=== PATIENT | male | born 1935 | race Caucasian/White ===

== ENCOUNTER 2016-07-03 12:30 | Emergency (ER) | payer MEDICARE, OTHER ==
[~2016-07-03] VITALS: Ht 169.2 cm; Wt 72.7 kg
[~2016-07-03 12:30] MED LIST: ATOR20TA PO; CARB1TAB14 PO; CARB1TAB37 PO; CHOL200047 PO; CITA20TA11 PO; DOCU250C2 PO; DONE10TA42 PO; KLO1T PO; LEVO25TA5 PO; LEVO500T16 PO; METO25TA6 PO; MINE3.5O28 BOTH_EYES; MULT-666 PO; NIAC100045 PO; PANT40TA3 PO; POLY1DRO BOTH_EYES; PRAM0.252 PO; PRAM0.256 PO; SENN-133 PO; WARF2.5T82 PO; WARF2TAB7 PO
[2016-07-03 12:34] VITALS: BP 95/60; PULSE 73; RESP 16; O2SAT 98
--- NOTE | 2016-07-03 13:40 | DRSVH ---
PROCEDURE: CT BRAIN WITHOUT CONTRAST ([id number]) INDICATIONS: CONFUSION TECHNIQUE: Noncontrast 4.5 mm thick angled axial sections acquired from the foramen magnum to the vertex, with c oronal reformats. COMPARISON: None. FINDINGS: Image quality: Excellent. CSF spaces: Basal cisterns are patent. No extra-axial fluid collections. The ventricles are symmet lizabeth in size and shape. Brain: No intracranial bleeds or masses. There is cerebral volume loss for age, with resultant vent ricular and sulcal prominence. There are periventricular and deep white matter chronic small vessel ischemic changes. There is intracranial internal carotid artery atherosclerosis. Skull and face: Calvarium and visualized facial bones appear intact, without suspicious lesions. Sinuses: Visualized sinuses and mastoids are clear. IMPRESSION: No acute intracranial disease process. Dictated by: Sydni Torres MD, PhD on 07/03/2016 at 13:37 Approved by: Sydni Torres MD, PhD on 07/03/2016 at 13:38
--- NOTE | 2016-07-03 14:17 | ED.REPORT ---
HPI-General Illness Date of Service Jul 03, 2016 ED Provider: Nicci Teresa MD 80 y/o male with a hx of CHF, TIA and Atrial fibrillation with pacemaker presents to the ED upon his training and development assistant, Dr. Melendez's advice. As per the pt's , 4 days ago the pt's "caregiver found him completely slumped over with his head almost on the ground". The caregiver also informed the that the pt was very pale, confused and couldn't move for about 10 minutes after she found him outside the house. Since then, the pt has been experiencing fatigue. As per the pt, he remembers pulling weeds and talking to his caregiver. He denies abdominal pain, nausea,vomiting, dizziness, chest pain and SOB. Nursing Notes Stated Complaint: SLOW TO RESPOND/CHECK STROKE Chief Complaint: General Complaint Nursing Notes Reviewed: Yes Allergies: Coded Allergies: TAPE (Verified Allergy, Mild, 07/12/15) Scheduled Atorvastatin (Lipitor) 20 Mg Tablet 40 MG PO HS Carbidopa/Levodopa 25-100 mg (Carbidopa/Levodopa 25-100 mg) 1 Each Tablet 1 TABLET PO QID Carbidopa/Levodopa ER 50-200 mg (Carbidopa/Levodopa ER 50-200 mg) 1 Each Tablet 1 TABLET PO HS Cholecalciferol (Vitamin D3) (Vitamin D3) 2,000 Unit Capsule 2,000 UNIT PO DAILY Citalopram (Citalopram) 20 Mg Tablet 20 MG PO DAILY Docusate Sodium (Docusate Sodium) 250 Mg Capsule 100 MG PO BID Donepezil (Donepezil) 10 Mg Tablet 10 MG PO HS Levofloxacin (Levaquin) 500 Mg Tablet 500 MG PO DAILYAC Levothyroxine (Levothyroxine) 25 Mcg Tablet 25 MCG PO DAILY Metoprolol Tartrate (Metoprolol Tartrate) 25 Mg Tablet 12.5 MG PO BID Mineral Oil/Petrolatum,White (Artificial Tears Eye Oint) 3.5 Gm Tube 1 APPLIC BOTH_EYES HS Multivitamin (Once Daily) 1 Each Tablet 1 EACH PO DAILY Niacin ER (Niacin ER) 1,000 Mg Tablet 1,000 MG PO HS Pantoprazole DR (Pantoprazole DR) 40 Mg Tablet.dr 40 MG PO DAILY Pramipexole Dihydrochloride (Pramipexole Dihydrochloride) 0.25 Mg Tablet 0.125 MG PO QAM Pramipexole Dihydrochloride (Mirapex) 0.25 Mg Tablet 0.25 MG PO QPM Sennosides (Senna) 8.6 Mg Tablet 8.6 MG PO HS Warfarin Sodium (Warfarin Sodium) 2.5 Mg Tablet 4.5 MG PO DAILY PER PROTIME CLINIC Warfarin Sodium (Warfarin Sodium) 2 Mg Tablet 4.5 MG PO DAILY Scheduled PRN Clonazepam (Clonazepam) 1 Mg Tablet 1 MG PO HS PRN PRN For Anxiety Polyvinyl Alcohol/Povidone/Pf (Refresh Classic Eye Drops) 1 Each Droperette 1 EACH BOTH_EYES PRN For Eye Irritation General Time Seen by MD: 14:15 Chief Complaint Multip medical complaints Hx Obtained From: Spouse Arrived By: Walk-in Sudden in Onset?: Yes Onset Occurred: 4 days ago Symptom Duration: 1 - 15 minutes Severity: Current: No pain currently Severity: Maximum: No pain Recent Healthcare: Recent doctor visit Similar Sx Previous: No Past Medical History Past Medical History Notes: Produce Assistant: Dr. Melendez Past Medical History Parkinson's sleep apnea restless leg syndrome valvular insufficiency Atrial fibrillation with pacemaker Anxiety Reports: Congestive heart failure, Transient ischemic attack Reports: Dementia, Depression Past Surgical History Left ankle fusion Knee scope Reports: Appendectomy, Tonsillectomy Reports: Pacemaker insertion Smoking History Never Smoker Social History Lives at home with , retired. Stays active by riding bicycle. Alcohol Use: "Social" Drug Use: Denies drug use Occupation Retired Ambulatory Status Walker Review of Systems +Pallor Full Review of Systems Constitutional: Reports: Fatigue Respiratory: Denies: Shortness of breath Cardiovascular: Denies: Chest pain GI: Denies: Abdominal pain, Nausea, Vomiting Neurologic: Reports: Confusion, Problem walking, Denies: Dizziness Complete sys rev & neg: except as marked. Physical Exam Vital Signs Vital Signs Date Time Temp Pulse Resp B/P Pulse Ox O2 Delivery O2 Flow Rate FiO2 07/03/16 17:41 70 14 118/57 99 Room Air 07/03/16 12:34 36.8 73 16 95/60 98 Room Air Initial VS: Reviewed Head / Eyes: Atraumatic, Normocephalic, PERRL ENT: Mucous membranes moist, Conjunctiva normal, No scleral icterus Neck: Supple, Non-tender, Full range of motion Respiratory: Breath sounds normal, Clear to auscultation, No respiratory distress Cardiovascular: Regular rate & rhythm, Heart sounds normal, Intact distal pulses Abdomen / GI: Soft, Non-tender, No guarding, No rebound, No distention Extremities: Vascular intact, Neuro intact, No swelling, No tenderness Skin: Warm, Dry, No cyanosis Neurologic: Alert, Oriented, Nonfocal Psychiatric: Mood/affect normal, Behavior normal, Normal thought content General/Constitutional: Awake, Alert, No acute distress, Well appearing, Cooperative, Not toxic appearing Interpretation & Diagnostics Lab Results Interpretation Result Diagram: 07/03/16 1456 07/03/16 1456 Test 07/03/16 14:56 07/03/16 16:40 07/03/16 17:51 White Blood Count 4.9th/mm3 (3.8-10.1) Red Blood Count 4.59mil/mm3 (4.40-5.80) Hemoglobin 14.3g/dL (13.8-17.2) Hematocrit 42.4% (41.0-50.0) Mean Corpuscular Volume 92.4fL (81-100) Mean Corpuscular Hemoglobin 31.2pg (27.0-35.0) Mean Corpuscular Hemoglobin Concent 33.7% (32.0-37.0) Red Cell Distribution Width 12.6% (12.3-15.4) Platelet Count 156bil/L (150-400) Neutrophils (%) (Auto) 69.4% (40-74) Lymphocytes (%) (Auto) 21.6% (14-46) Monocytes (%) (Auto) 7.2% (4-12) Eosinophils (%) (Auto) 1.0% (0-5) Basophils (%) (Auto) 0.6% (0-3) Prothrombin Time 24.6sec (8.1-12.5) Prothromb Time International Ratio 2.26ratio Sodium Level 133mEq/L (134-144) Potassium Level 4.6mEq/L (3.5-5.2) Chloride Level 98mEq/L (97-108) Carbon Dioxide Level 22mmol/L (18-29) Blood Urea Nitrogen 14mg/dL (8-27) Creatinine 0.63mg/dL (0.76-1.27) Estimat Glomerular Filtration Rate 131mL/min (>59) Glucose Level 89mg/dL (60-99) Calcium Level 9.5mg/dL (8.5-10.1) Total Bilirubin 0.4mg/dL (0.0-1.2) Aspartate Amino Transf (AST/SGOT) 33U/L (0-50) Alanine Aminotransferase (ALT/SGPT) 19U/L (0-44) Alkaline Phosphatase 89U/L (25-160) Total Protein 6.4g/dL (6.4-8.4) Albumin 4.0g/dL (3.4-5.0) Troponin T 0.013ug/L (0.0-0.011) Hold Mac Top Tube Received (Received) ECG Interpretation ECG Interpretation: Ventricullarly paced rhtyhm. Rate 71. Time: 14:50 Interpreted by: ED physician X-Ray Chest Interpretation Chest Xray Interpretation: IMPRESSION: No acute process. Dictated by: Dinora Ribeiro M.D. on 07/03/2016 at 14:27 Approved by: Dinora Ribeiro M.D. on 07/03/2016 at 14:28 View: Portable, 1 view Interpretation / Wet Read by: Interpret - Radiologist CT Head Interpretation IMPRESSION: No acute intracranial disease process. Dictated by: Sydni Torres MD, PhD on 07/03/2016 at 13:37 Approved by: Sydni Torres MD, PhD on 07/03/2016 at 13:38 Study: Head CT no contrast Interpretation / Wet Read by: Interpret - Radiologist Re-Eval/Medical Decision Med Decision/Clinical Course The patient had an episode earlier this week that seems most consistent with a syncopal or near-syncopal episode. He was confused and pale. Interrogation of his pacemaker reveals that it was working appropriately. Dr. Peters came and looked at the readout. He said it still possible that he had a vagal episode that caused vasodilatation that his pacemaker was working. There was some concern for stroke but again the symptoms are consistent more with syncope or near syncope, the patient does not have any localizing neurologic symptoms, he was confused and weak but this lasted only 10 minutes. The patient's evaluation shows an elevated troponin so we will have a repeat troponin. If his troponin stays the same healthy able to go home because a few need to be admitted to the hospital. The patient signed out to Dr. Taylor. Source of Hx: Old records, Family Re-Evaluation/Progress Note: Consultation : Referral / Consult Name: Humberto Peters MD Consulted With: Cardiology Call Returned at: 15:47 Die Try Out Worker Stamping: Agrees with eval, Agrees with plan Counseled Regarding: Diagnosis, Lab results, Need for follow-up, When/why to return to ED Discharge & Departure Shift Change Sign-Out Patient Care Transferred: Yes Discussed Complaint(s): Yes Laboratory Evaluation: Ordered, not yet done Response to Therapy: Discussed Repeat troponin Primary Impression: Near syncope Discharge Condition All VS Reviewed: Yes Condition: Stable Referrals: Anitha Snyder MD (PCP) Erwin Melendez MD Care Transferred to: Dr. Taylor Care Transferred at: 18:01 Scribe Attestation Portions of this note were transcribed by Yelitza Hurtado and Nadege Bryan. I, , personally performed the history, physical exam and medical decision-making;I reviewed and confirmed the accuracy of the information in the transcribed note. Signed by Yelitza Bryan, Scribe. 07/03/16 1800. copies to: Anitha Snyder MD; Erwin Melendez MD, Jena M MD Jul 03, 2016 14:17 Yelitza Hurtado Jul 03, 2016 14:32 Nadege Bryan Jul 03, 2016 17:36
--- NOTE | 2016-07-03 14:30 | DRSVH ---
PROCEDURE: X-RAY CHEST ONE VIEW, PORTABLE ([id number]) INDICATIONS: CVA/TIA TECHNIQUE: One view of the chest was acquired. COMPARISON: [facility], CR, XR CHEST 1VW (PORTABLE), 03/18/2015, 8:00. [facility], CR, CHEST 1VW (PORTABLE), 11/06/2011, 8:59. [facility], CR, CHEST 1VW (PORTABLE), 09/13/2011, 17:43. [facility], CR, XR CHEST 2VW, 09/24/2015, 16:01. FINDINGS: Surgical changes and devices: Left-sided pacer. Median sternotomy. Lungs and pleura: No pleural effusions or pneumothorax. Lungs are clear. Mediastinum: Mediastinal contours appear normal. Heart size is enlarged. Bones and chest wall: No suspicious bony lesions. Overlying soft tissues appear unremarkable. IMPRESSION: No acute process. Dictated by: Dinora Ribeiro M.D. on 07/03/2016 at 14:27 Approved by: Dinora Ribeiro M.D. on 07/03/2016 at 14:28
[2016-07-03 14:59] LABS: BASOPHILS % (AUTO) 0.6 % (0-3); MONOCYTES % (AUTO) 7.2 % (4-12); Mean Corpuscular Hemoglobin 31.2 pg (27.0-35.0); Mean Corpuscular Volume 92.4 fL (81-100); NEUTROPHILS % (AUTO) 69.4 % (40-74); Platelet Count 156 bil/L (150-400)
[2016-07-03 15:16] LABS: INR 2.26 ratio
[2016-07-03 17:41] VITALS: BP 118/57; PULSE 70; RESP 14; O2SAT 99
[2016-07-03 18:15] LABS: APPEARANCE,URINE CLEAR (CLEAR,HAZY); COLOR,URINE YELLOW (YELLOW); OCCULT BLOOD,URINE NEGATIVE (NEGATIVE); PH,URINE 7.5 (5.0-8.0); UROBILINOGEN,URINE NORMAL (NORMAL)
[2016-07-03 19:47] VITALS: BP 137/79; PULSE 70; RESP 14; O2SAT 100
[2016-07-03 20:57] VITALS: BP 129/75; PULSE 75; RESP 14; O2SAT 100
[2016-07-03 20:58] VITALS: BP 133/78; PULSE 74
== END 2016-07-03 21:05 | disposition home or self-care (01) ==
LOC: SED 12:30
DX: R55 Syncope and collapse (principal); I48.91 Unspecified atrial fibrillation; I50.9 Heart failure, unspecified; G20 Parkinson's disease; G47.30 Sleep apnea, unspecified; Z86.73 Personal history of transient ischemic attack (TIA), and cerebral infarction without residual deficits; Z95.0 Presence of cardiac pacemaker; Z86.69 Personal history of other diseases of the nervous system and sense organs; Z90.89 Acquired absence of other organs; Z79.01 Long term (current) use of anticoagulants

== ENCOUNTER 2016-09-02 14:44 | Observation (INO) | payer MEDICARE, OTHER ==
[~2016-09-02] VITALS: Ht 167.6 cm; Wt 74.7 kg
[2016-09-02] VITALS (8 sets, daily range): BP systolic 105–122; BP diastolic 58–76; PULSE 65–79; RESP 18–27; O2SAT 95–98
[2016-09-02 15:12] LABS: BASOPHILS % (AUTO) 0.5 % (0-3); EOSINOPHILS % (AUTO) 1.6 % (0-5); MONOCYTES % (AUTO) 9.7 % (4-12); Mean Corpuscular Hemoglobin 31.6 pg (27.0-35.0); Mean Corpuscular Volume 94.5 fL (81-100); NEUTROPHILS % (AUTO) 68.4 % (40-74); Platelet Count 161 bil/L (150-400)
--- NOTE | 2016-09-02 15:18 | DRSVH ---
PROCEDURE: X-RAY CHEST ONE VIEW, PORTABLE ([id number]) INDICATIONS: 81 year-old male with syncope and shortness of breath. TECHNIQUE: One view of the chest was acquired. COMPARISON: [facility], CR, XR CHEST 1VW (PORTABLE), 07/03/2016, 14:19. [facility], CR, XR CHEST 2VW, 09/24/2015, 16:01. [facility], CR, XR CHEST 2VW, 08/19/2015, 8: 57. FINDINGS: Surgical changes and devices: Left chest wall dual chamber pacemaker is again noted. Patient is statu s post median sternotomy and cardiac valve replacement. Lungs and pleura: No pleural effusions or pneumothorax. Lungs are clear. Mediastinum: Mediastinal contours appear normal. Cardiomegaly is unchanged. Bones and chest wall: No suspicious bony lesions. Overlying soft tissues appear unremarkable. IMPRESSION: Cardiomegaly, without acute cardiopulmonary disease. Dictated by: Abdiel Diallo M.D. on 09/02/2016 at 15:15 Approved by: Abdiel Diallo M.D. on 09/02/2016 at 15:16
--- NOTE | 2016-09-02 15:30 | ED.REPORT ---
HPI-Dizziness / Weakness Date of Service Sep 02, 2016 ED Provider: Murphy Alvarez MD Patient presents to ER today with three-day history of progressive weakness and fatigue. Patient states that he feels strong muscles are not weak. Generally patient is very able and active, states that his status today is a significant change from his baseline. But he feels more tired than normal despite adequate rest. He denies fever chills nausea vomiting. He has a significant cardiac history with pacer placement in 2009. Last saw hat model 2 months ago PCP is Dr. Mae Snyder Nursing Notes Stated Complaint: WEAK Chief Complaint: General Complaint Nursing Notes Reviewed: Yes Allergies: Coded Allergies: TAPE (Verified Allergy, Mild, 09/02/16) Scheduled Atorvastatin (Lipitor) 20 Mg Tablet 40 MG PO HS Carbidopa/Levodopa 25-100 mg (Carbidopa/Levodopa 25-100 mg) 1 Each Tablet 1 TABLET PO BIDWM 10AM, 1630PM Carbidopa/Levodopa 25-100 mg (Carbidopa/Levodopa 25-100 mg) 1 Each Tablet 1.5 TABLET PO BID 06AM, 1400PM Carbidopa/Levodopa ER 50-200 mg (Carbidopa/Levodopa ER 50-200 mg) 1 Each Tablet 1 TABLET PO HS Cholecalciferol (Vitamin D3) (Vitamin D3) 2,000 Unit Capsule 2,000 UNIT PO DAILY Citalopram (Citalopram) 20 Mg Tablet 20 MG PO HS Clonazepam (Clonazepam) 1 Mg Tablet 1 MG PO HS Digoxin (Digoxin) 250 Mcg Tablet 125 MCG PO HS Docusate Sodium (Docusate Sodium) 250 Mg Capsule 100 MG PO BID Donepezil (Donepezil) 10 Mg Tablet 10 MG PO HS Levothyroxine (Levothyroxine) 25 Mcg Tablet 25 MCG PO QAM Metoprolol Tartrate (Metoprolol Tartrate) 25 Mg Tablet 12.5 MG PO BID Mineral Oil/Petrolatum,White (Refresh P.m. Ointment) 3.5 Gm Oint...g. 1 APPLIC BOTH_EYES HS Multivitamin (Once Daily) 1 Each Tablet 1 EACH PO DAILY Pramipexole Dihydrochloride (Mirapex) 0.5 Mg Tablet 0.5 MG PO QAM Pramipexole Dihydrochloride (Mirapex) 0.5 Mg Tablet 1.5 MG PO HS Sennosides (Senna) 8.6 Mg Tablet 17.2 MG PO HS Trazodone (Trazodone) 50 Mg Tablet 25 MG PO HS Warfarin Sodium (Warfarin Sodium) 2.5 Mg Tablet 2.5 MG PO QPM take along with 2mg tab for a total dose of 4.5mg daily Warfarin Sodium (Warfarin Sodium) 2 Mg Tablet 2 MG PO QPM take along with 2.5mg tab for a total dose of 4.5mg daily General Time Seen by MD: 14:54 Chief Complaint Generalized weakness, Feeling unsteady Hx Obtained From: Patient, Spouse Arrived By: Walk-in Onset Occurred: 3 days ago Symptom Duration: Constant Severity: Current: No pain currently Risk Factors CVA Risk Stratification Risk factors reviewed Past Medical History Past Medical History 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 Stays active by riding bicycle. Alcohol Use: "Social" Drug Use: Denies drug use Occupation Retired Ambulatory Status Walker Review of Systems Constitutional: Reports: Fatigue, Lethargy, Recent wt loss, Weakness - generalized, Denies: Chills, Fever Respiratory: Reports: Dyspnea on exertion, Shortness of breath Cardiovascular: Denies: Chest pain GI: Denies: Abdominal pain, Constipation, Diarrhea Endocrine: Reports: Weight loss Skin: Denies Diaphoresis Neurologic: Denies: Confusion, Focal weakness, Headache, Lightheaded, Numbness Complete sys rev & neg: except as marked. Physical Exam Initial Vital Signs Vital Signs (First) Date Time Temp Pulse Resp B/P Pulse Ox O2 Delivery O2 Flow Rate FiO2 09/02/16 14:48 36.7 79 25 118/61 96 Room Air Initial VS: Reviewed ENT: Mucous membranes moist, Conjunctiva normal Neck: Supple, Non-tender Abdomen / GI: Soft, Non-tender, No guarding, No rebound, No distention Lymphatic: No lymphadenopathy Extremities: Vascular intact Skin: Warm, Dry, No cyanosis Psychiatric: Mood/affect normal, Behavior normal, Normal thought content General/Constitutional: Awake, Alert, No acute distress Alertness: Positive: Lethargic, Negative: Confused, Disoriented Appearance / Presentation: Negative: Cachectic, Cyanotic, In pain Interpretation & Diagnostics Lab Results Interpretation Result Diagram: 09/02/16 1500 09/02/16 1500 Test 09/02/16 15:00 White Blood Count 5.7th/mm3 (3.8-10.1) Red Blood Count 4.21mil/mm3 (4.40-5.80) Hemoglobin 13.3g/dL (13.8-17.2) Hematocrit 39.8% (41.0-50.0) Mean Corpuscular Volume 94.5fL (81-100) Mean Corpuscular Hemoglobin 31.6pg (27.0-35.0) Mean Corpuscular Hemoglobin Concent 33.4% (32.0-37.0) Red Cell Distribution Width 12.8% (12.3-15.4) Platelet Count 161bil/L (150-400) Neutrophils (%) (Auto) 68.4% (40-74) Lymphocytes (%) (Auto) 19.6% (14-46) Monocytes (%) (Auto) 9.7% (4-12) Eosinophils (%) (Auto) 1.6% (0-5) Basophils (%) (Auto) 0.5% (0-3) Prothrombin Time 19.4sec (8.1-12.5) Prothromb Time International Ratio 1.79ratio Sodium Level 143mEq/L (134-144) Potassium Level 3.7mEq/L (3.5-5.2) Chloride Level 106mEq/L (97-108) Carbon Dioxide Level 24mmol/L (18-29) Blood Urea Nitrogen 25mg/dL (8-27) Creatinine 0.68mg/dL (0.76-1.27) Estimat Glomerular Filtration Rate 120mL/min (>59) Glucose Level 90mg/dL (60-99) Calcium Level 9.4mg/dL (8.5-10.1) Magnesium Level 2.0mg/dL (1.6-2.6) Total Bilirubin 0.5mg/dL (0.0-1.2) Aspartate Amino Transf (AST/SGOT) 56U/L (0-50) Alanine Aminotransferase (ALT/SGPT) 10U/L (0-44) Alkaline Phosphatase 96U/L (25-160) Troponin T 0.096ug/L (0.0-0.011) Total Protein 6.3g/dL (6.4-8.4) Albumin 4.1g/dL (3.4-5.0) Triglycerides Level 64mg/dL (0-149) Cholesterol Level 154mg/dL (100-199) LDL Cholesterol, Calculated 90.200mg/dL (0-99) VLDL Cholesterol 12.800mg/dL HDL Cholesterol 51mg/dL (>39) Cholesterol/HDL Ratio 3.02 (0.0-4.4) Hold Mac Top Tube Received (Received) Re-Eval/Medical Decision Med Decision/Clinical Course This is a 81-year-old male who has not previously had coronary disease in spite of having valvular disease. He presents today with 24 hours of nonspecific symptoms of fatigue without chest pain shortness of breath nausea or diaphoresis. The patient's ECG shows a paced rhythm. Surprisingly his troponin is positive. On discussion with cardiology, he had a cardiac catheterization last year in [place] with what was described as minimal coronary disease. He has somewhat subtherapeutic on warfarin for atrial fibrillation. My exam and sounds that he has a mechanical valve for likely this is also an indication for anticoagulation. He do not find any acute suggestion of infection. After discussion with cardiology, the patient was given an injection of Lovenox to bridge until INR is therapeutic. He will be admitted to the hospitalist service with cardiology consult in the morning. Sierra Alvarez MD Consultation #1: Referral / Consult Name: Ale Wolfe MD Consulted With: Hospitalist Call Returned at: 16:15 Clay Artisan: Will see patient, Accepts admit Note: Discussed pt with Dr. Wolfe Consultation #2: Referral / Consult Name: Cooper Stockton MD Consulted With: Cardiology Call Returned at: 17:25 Clay Artisan: Agrees with eval, Agrees with plan Note: Discussed case with Dr. Stockton and he will consult in the morning. Advised Lovanox until he is therapeutic on his INR. Counseled Regarding: Diagnosis, Lab results, Need for admission Patient Discharge & Departure Impression: Primary Impression: Non-ST elevation myocardial infarction (NSTEMI) Disposition: ADMITTED TO HOSPITAL Discharge Condition All VS Reviewed: Yes Condition: Stable Referrals: Anitha Snyder MD (PCP) Attending Statement Seen and examined with Dr Ferraro on 09/02. Agree with above, see my note in MDM Anitha Snyder MD, Adam J DO Sep 02, 2016 15:30 Ewa Warner Sep 02, 2016 17:32 Murphy Alvarez MD Sep 02, 2016 20:09
[2016-09-02 15:48] LABS: INR 1.79 ratio
[2016-09-02 15:51] LABS: TROPONIN T 0.096 ug/L (0.0-0.011)
[2016-09-02] MEDS ORDERED: 0.9% Sodium Chloride 1,000 ML IV SCH (16:22)
[2016-09-02] MEDS ORDERED: Senna-Docusate 8.6-50 mg Tablet PO PRN (16:25)
[2016-09-02] MEDS ORDERED: Heparin 5,000 Unit/mL Inj IVPUSH ONE (16:25)
[2016-09-02] MEDS ORDERED: Ondansetron 2 mg/mL 2 mL Inj IVPUSH PRN ×3 (16:25→17:20)
[2016-09-02] MEDS ORDERED: Heparin 5,000 Unit/mL Inj IVPUSH PRN (16:25)
[2016-09-02] MEDS ORDERED: Heparin 25K Unit/500mL 0.45 NS 25,000 UNIT in IV Premix 1 EACH IV SCH (16:25)
[2016-09-02] MEDS ORDERED: Atropine 1 mg/10 mL (Code) Syringe IVPUSH PRN (16:25)
[2016-09-02] MEDS ORDERED: Alum-Mag Hydrox-Simeth 30 mL Suspension PO PRN ×3 (16:25→17:20)
[2016-09-02] MEDS ORDERED: Polyethylene Glycol (PEG) 17 Gm Powder PO PRN ×2 (16:25→17:05)
[2016-09-02] MEDS ORDERED: Sodium Chloride LOK Flush 10 mL Syringe IVFLUSH SCH (16:30)
[2016-09-02] MEDS ORDERED: DIGO125T73 PO ×2 (16:53→19:56)
[2016-09-02] MEDS ORDERED: KTC2C15 TP (16:53)
[2016-09-02] MEDS ORDERED: TRAZ-115 PO (16:53)
[2016-09-02] MEDS ORDERED: hydrALAZINE 20 mg/mL Inj IVPUSH PRN (17:05)
[2016-09-02] MEDS ORDERED: CARB1TAB14 PO (17:34)
[2016-09-02] MEDS ORDERED: DIGO250T72 PO ×2 (17:37→19:57)
[2016-09-02] MEDS ORDERED: PETR3.5O BOTH_EYES (17:40)
[2016-09-02] MEDS ORDERED: PRAM0.5T3 PO ×2 (17:40)
[2016-09-02 17:59] LABS: APPEARANCE,URINE CLEAR (CLEAR,HAZY); COLOR,URINE YELLOW (YELLOW); OCCULT BLOOD,URINE NEGATIVE (NEGATIVE); UROBILINOGEN,URINE NORMAL (NORMAL)
--- NOTE | 2016-09-02 18:10 | PCM.HPMED ---
Subjective Date of Service Sep 02, 2016 Primary Provider: Admitting Physician: Ruben Nam MD Primary Care Physician: Anitha Snyder MD Attending Physician: Ruben Nam MD Chief Complaint: Confusion, weakness History of Present Illness: Lior Hurtado is a 81 year old man with past medical history significant for open heart surgery with repair of the tricuspid valve and a patent foramen ovale, atrial fibrillation on chronic warfarin therapy, and Parkinson disease who presents today to the [facility] ED due to two days of confusion and generalized weakness. The patient is a poor historian and is accompanied by his who gives much of the history. The patient's has noticed for the last few days that he has been weak with a somewhat abrupt change two days ago. She has also noticed that he leans more to the right in a chair and has had worsening of his shuffling gait. She noticed more pronounced confusion and slurring than usual. She denies any facial droop. The patient denies any chest pain, shortness of breath, diaphoresis, unilateral weakness, nausea, vomiting or abdominal or back pain. He does see a neurologist for his Parkinson and there have been no changes to his medications. His last visit was two months ago. He was seen yesterday at an Urgent Care where concern was expressed about a possible CVA and he was advised to come to the hospital for further evaluation. In the ED his vitals were stable. EKG was V-Paced and not revealing. CXR was negative. He has a mildly elevated troponin. Review of Systems: A comprehensive review of systems was conducted with the patient and found to be negative except as above in the History of Present Illness. Allergies Coded Allergies: TAPE (Verified Allergy, Mild, 09/02/16) Home Medications Lior Hurtado. [id number] 1935 09/01/2016 05:40 PM 03/12 Start Date Medication Directions 01/13/2016 atorvastatin 40 mg tablet take 1 tablet by oral route every day carbidopa 25 mg-levodopa 100 mg tablet take 1.5 tablets at 6am, 1 tablet at 10am, 1.5 tablets at 2pm and 1 tablet at 4:30pm every day carbidopa ER 50 mg-levodopa 200 mg tablet,extended release Take 1 tablet by mouth daily 01/23/2016 citalopram 20 mg tablet take 1 tablet by oral route every day for mood 08/21/2016 clonazepam 1 mg tablet take 1 tablet (1MG) by ORAL route every night at bedtime. 07/24/2016 digoxin 125 mcg tablet take 1/2 tablet by oral route every day 07/25/2015 docusate sodium 100 mg capsule take 1 capsule by oral route 2 times every day at bedtime as needed 01/08/2015 donepezil 10 mg tablet take 1 tablet (10MG) by oral route every day at bedtime for memory 11/25/2015 ketoconazole 2 % topical cream apply by topical route every day to the affected area(s) 04/09/2016 levothyroxine 25 mcg tablet take 1 tablet (25MCG) by oral route every day before breakfast on an empty stomach for thyroid. 07/18/2009 Multiple Vitamins Tab take 1 tablet by ORAL route every day with food pramipexole 0.5 mg tablet take 1 tablet in AM by oral route and 3 tablets in PM Refresh Liquigel 1 % eye liquid gel drops Every day Refresh P.M. 57.3 %-42.5 % eye ointment Every day at bedtime 10/14/2010 senna 8.6 mg Tab take 2 tablet by oral route every bedtime 08/21/2016 TRAZODONE 50MG TABLET* = TAKE 1/2 TABLET BY MOUTH NIGHTLY AT BEDTIME NEEDED FOR NAUSEA Vitamin D3 2,000 unit tablet Take 1 tablet by mouth daily 07/31/2016 WARFARIN TAB 2.5MG TABLET TAKE ONE TABLET BY MOUTH DAILY OR DIRECTED 06/17/2016 warfarin 2 mg tablet take 1 tablet by oral route every day or as directed by coumadin clinic [facility] Valvular heart disease Atrial fibrillation on chronic warfarin therapy History of hemorrhoids Parkinson's disease Obstructive sleep apnea on CPAP Hypothyroidism History of constipation Restless leg syndrome Gastroesophageal reflux disease Hyperlipidemia History of depression and anxiety Hypertension TIA 2012 History of dyslipidemia. Surgical History Open heart surgery with tricuspid valve repair and patent foramen ovale repair Ankle surgery Appendectomy Tonsillectomy Pacemaker Family History Father: Stroke, heart disease. Mother, stroke, myocardial infarction Brother: Melanoma. Social History Hx Alcohol Use: No Hx Substance Use: No Hx Tobacco Use: No Smoking Status: Never Smoker Exam Vital Signs Vital Sign - Last Date Time Temp Pulse Resp B/P Pulse Ox O2 Delivery O2 Flow Rate FiO2 09/02/16 17:34 65 18 122/58 95 Room Air 09/02/16 14:48 36.7 Exam General: No acute distress, well-developed, well-nourished, appropriately interactive HEENT: Normocephalic, atraumatic. External ears without defect. Pupils equal, round, and reactive to light and accommodation. Anicteric sclerae, moist conjunctivae, and no lid lag. Oropharynx free of erythema and cobble stoning with moist mucosa. 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 Neck: Supple with full range of motion. No jugular venous distension. No bruits. No lymphadenopathy or thyromegaly. Cardiovascular: Regular rate and rhythm with soft diastolic murmur Pulmonary: Clear to auscultation bilaterally with no crackles, wheezes, or rhonchi. Normal respiratory effort with no use of accessory muscles. Abdomen: Bowel tones present. Soft, nontender, nondistended. No hepatosplenomegaly or masses appreciated. Extremities: No clubbing, cyanosis, edema, or lymphadenopathy appreciated. Skin: Normal temperature, turgor, and texture; no rash, ulcers, or subcutaneous nodules appreciated. Neurological: Cranial nerves grossly intact. Normal muscle strength, tone, and bulk. No known gait impairment. Psychiatric: Normal mood and affect. Alert and oriented to person, place, and time. Lab and Diagnostics Labs Item Value Date Time Prothromb Time International Ratio 1.79 ratio 09/02/16 1500 Item Value Date Time Troponin T 0.096 ug/L *H 09/02/16 1500 Result Diagram: 09/02/16 1500 09/02/16 1500 X-Rays, CTs and MRIs X-RAY CHEST ONE VIEW, PORTABLE IMPRESSION: Cardiomegaly, without acute cardiopulmonary disease. Dictated by: Abdiel Diallo M.D. on 09/02/2016 at 15:15 12-lead ECG V-paced, normal axis, unable to view ST changes Assessment & Plan Lior Hurtado is a 81 year old man with past medical history significant for open heart surgery with repair of the tricuspid valve and a patent foramen ovale, atrial fibrillation on chronic warfarin therapy, and Parkinson disease who presents today to the [facility] ED due to two days of confusion and generalized weakness. Possible CVA in patient with A. fib with subtherapeutic INR -DDx progression of Parkinson disease -CT of head without contrast -CT angio of head and neck tomorrow -Patient has a pacemaker and is unable to have an MRI -ECHO with bubble study -Patient not on ASA, will start -Continue home statin -Telemetry -Fall precaution -ST, OT, PT Status post open heart surgery with valvular replacement and patent foramen ovale repair: -Possible contribution to CVA Atrial fibrillation, present on admission and rate controlled. -Subtherapeutic INR. Continue warfarin if head CT shows no bleed. -Continue home medications: Metoprolol tartrate -Patient on telemetry Parkinson's disease, present on admission: -Continue levodopa-carbidopa, donepezil, and pramipexole. Hyperlipidemia, present on admission: -Continue Atorvastatin. Depression anxiety, present on admission: -Continue Citalopram. Hypothyroidism, present on admission: -Continue Levothyroxine. Gastroesophageal reflux disease, present on admission: -Continue Pantoprazole. CODE STATUS: DNR/DNI Patient is admitted under observation due to severity of symptoms, possibility for deterioration, and complexity of treatment. VTE Prophylaxis: Theraputic Anticoag with Warfarin Resuscitation Status: DNR/DNI:Do Not Resuscitate/Intubate Time spent 45 minutes Attending Statement Patient was seen and examined with house staff. Agree with all attached documentation. Yamel Jordan DO Sep 02, 2016 17:37 Ruben Nam MD Sep 03, 2016 15:48
--- NOTE | 2016-09-02 19:52 | NUR ---
Admit No reports of chest pain/pressure/discomfort. Tele V paced 60s-70s. Bilateral LE pitting edema, L>R, patient has tedhose on right LE. No reports of SOB/dizziness, SPO2 mid 90s on RA, denies cough, patient has KOTA, bringing in CPAP. No reports of n/v/d/c or abdominal pain. Patient has not voided since arrival to unit, per ED report voids in urinal without complication. Reports normal BM this AM. Alert and oriented x3, LOPEZ, reports full sensation. RN notes equal strength in all extremities, patient has even facial symmetry, tongue is midline. Face has non expressive, "parkinsons mask" type appearance.
--- NOTE | 2016-09-02 21:50 | DRSVH ---
PROCEDURE: CT BRAIN WITHOUT CONTRAST ([id number]) INDICATIONS: ?CVA, confusion TECHNIQUE: Noncontrast 4.5 mm thick angled axial sections acquired from the foramen magnum to the vertex, with c oronal reformats. COMPARISON: [facility], CT, CT BRAIN WO CON, 07/03/2016, 13:28. FINDINGS: Image quality: Excellent. CSF spaces: Basal cisterns are patent. No extra-axial fluid collections. The ventricles are symmet lizabeth in size and shape. Brain: No intracranial bleeds or masses. There is moderate cerebral volume loss for age, with resul tant ventricular and sulcal prominence. There are moderate periventricular and deep white matter chr onic small vessel ischemic changes. There is intracranial internal carotid artery atherosclerosis. Skull and face: Calvarium and visualized facial bones appear intact, without suspicious lesions. Sinuses: Visualized sinuses and mastoids are clear. IMPRESSION: 1. No acute intracranial abnormalities. If acute stroke is suspected, MRI is suggested for further ev aluation. 2. Cerebral volume loss and chronic microvascular ischemic changes. Dictated by: Sid Mcdonald M.D. on 09/02/2016 at 21:45 Approved by: Sid Mcdonald M.D. on 09/02/2016 at 21:47
[2016-09-03 03:11] VITALS: BP 102/68; PULSE 70; RESP 19; O2SAT 98
[2016-09-03 03:13] VITALS: PULSE 71
[2016-09-03 08:00] VITALS: PULSE 70
--- NOTE | 2016-09-03 11:04 | NUR ---
Case Management: MAGANA and Medicare Part D pamphlet delivered to pt. and spouse. Signed original placed in chart. Copy left at bedside. Dinora Jc RN
--- NOTE | 2016-09-03 11:16 | NUR ---
Social Work: Initial Assessment D: Per EMR review, pt is a 81 year old male admitted for N STEMI. Pt is Medicare with [employer] of State; pt has no LTC insurance or VA benefits. PCP is Anitha Snyder MD. NOK is Rebekah Hurtado, , . Advanced directives requested from pt's for pt's chart. Readmit score is 4/8. GLAUCOMA SPECIALIST met with pt and at bedside. Sw role explained and contact info provided. Pt and spouse live in [place] in a single story home with ramp access. Pt has Parkinsons and uses a 4WW at baseline. Pt does not drive but states that he is I with all of his ADLs. assists with driving, chores, cooking and groceries. Pt has a history with [facility] but is not currently open. Pt was placed at [facility] in [place] from [id number] after his diagnosis of Parkinsons. Pt was able to return home and both he and state that he has been doing very well. PT evaluation is pending. A: Pt who lives at home with his spouse. P: Evolving; Anticipate pt to discharge home; GLAUCOMA SPECIALIST to follow up with discharge planning once needs are more known. GLAUCOMA SPECIALIST to continue to follow. MICHAEL Castillo
[2016-09-03 11:56] VITALS: BP 117/69; PULSE 71; RESP 18; O2SAT 98
--- NOTE | 2016-09-03 13:41 | DRSVH ---
[facility] [address] [place] [address] Echocardiogram Report Name: VALENTIN POSADAS CStudy Date: Height: 6 6 in Hospital Exam Location: [facility] Weight: 1 63 lb Gender: Male BSA: 1.8 m2 : 1935 Age: 81 yrs Reason For Study: N STEMI, R/O Cardio-embolic source of CVA HR: 70 Ordering Physician: FILIBERTOIST [facility] Performed By: Shahnaz Solitario Referring Physician: Dr Anitha Snyder Interpretation Summary Yellow Team. Left ventricular wall thickness is mildly increased. The ejection fraction is estimated to be 45-50%. Septal motion is consistent with post-operative state. Inferoapical hypoknesis, distal septal hypokinesis. There is a bioprosthetic aortic valve. The prosthetic aortic valve is well-seated. There is mild mitral regurgitation. There is mild tricuspid regurgitation. The right ventricular systolic pressure is estimated at 25 mmHg assuming a right atrial pressure of 3 mm Hg. Compared to the prior exam, left ventricular function is slightly decreased. Procedure: A two-dimensional transthoracic echocardiogram with color flow and Doppler was performed. The study quality was technically adequate. Comparison is made with the echocardiogram of 08/19/2015. The patient was in normal sinus rhythm during the exam. Left Ventricle: The left ventricle is normal in size. Left ventricular wall thickness is mildly increased. A false chord is noted (normal variant). No obvious source of cardio-embolic source. The ejection fraction is estimated to be 45-50%. Compared to the prior exam, left ventricular function is slightly decreased. Septal motion is consistent with post-operative state. Inferoapical hypoknesis, distal septal hypokinesis. Diastolic function could not be accurately assessed due to unobtainable data. Right Ventricle: The right ventricle is normal size. Grossly normal systolic function however TAPSE measures at 13mm. Atria: The left atrium is severely dilated. The right atrium is severely dilated. The interatrial septum is intact with no evidence for an atrial septal defect. Injection of contrast documented no interatrial shunt. Bubble study with valsalva performed, injection of contrast documented no interatrial shunt. Mitral Valve: The mitral valve leaflets appear borderline thickened, but open well. There is mild mitral annular calcification. There is mild mitral regurgitation. Aortic Valve: There is a bioprosthetic aortic valve. The prosthetic aortic valve is well-seated. There is no aortic valve stenosis. There is trace aortic regurgitation. Tricuspid Valve: The tricuspid valve is normal in structure and function. There is mild tricuspid regurgitation. The right ventricular systolic pressure is estimated at 25 mmHg assuming a right atrial pressure of 3 mm Hg. Pulmonic Valve: The pulmonic valve is not well visualized. There is trace pulmonic regurgitation. Great Vessels: The aortic root is normal size. The ascending aorta is mildly enlarged. The pulmonary artery is normal size. The IVC is of normal diameter and collapses greater than 50% with a sniff. This suggests a low right atrial pressure of 3 mm Hg. Pericardium/ Pleura There is no pericardial effusion. There is no pleural effusion. MMode/2D Measurements & Calculations LVIDd: 4.3 cm LA dimension LVOT diam: 2.3 cm LVIDs: 2.7 cm Ao root diam: 3.3 cm LVAd ap4: 25.0 cm FS: 36.8 % LA A2 area asc Aorta Diam: 3.8 cm LVAs ap4: 19.0 cm EPSS: 0.32 cm LVLs ap4: 6.9 cm IVSd: 1.4 cm LVPWd: 1.3 cm LA A4 area LA length (vol) LA vol: 130.7 ml LA vol index IVC diam: 1.6 cm LVAd ap2 LV medrano. diameter/BSA LV sys. diameter/BSA : 27.0 cm EF(MOD-bp) (cm/m^2): 2.3 (cm/m^2): 1.5 LVLd ap2 : 43.7 % EDV(MOD-sp2) EDV(sp2-el) LVAs ap2 : 18.7 cm LVLs ap2 ESV(MOD-sp2) ESV(sp2-el) EF(MOD-sp2) Doppler Measurements & Calculations Ao V2 max MV E max delta Med Peak E' Delta TR max delta : 143.3 cm/sec : 80.9 cm/sec : 236.5 cm/sec Ao max P.2 mmHg E/E' med: 9.0 TR max PG Ao mean P.3 mmHg Pulm A Revs Dur : 22.4 mmHg LVOT Max Delta PA V2 max : 116.4 cm/sec MV A dur : 56.1 cm/sec : 0.14 sec PA mean PG NIK(I,D): 3.3 cm : 0.61 mmHg sev ratio: 0.79 PA Accel Time AI P1/2t: 875.2 msec : 0.09 sec AI dec slope : 146.4 cm/s2c MV dec time: 0.19 sec Ao V2 mean LV V1 max PG PA V2 mean : 95.7 cm/sec : 36.7 cm/sec Ao V2 VTI: 29.2 cm LV V1 VTI PA pr(Accel) NIK(V,D): 3.3 cm2 : 23.1 cm : 39.1 mmHg NIK indexed to BSA Pulm A Revs Dur - MV (cm^2/m^2): 1.8 A Dur: 0.00 msec Electronically signed by: Erwin Melendez on Reading Physician:09/03/2016 01:40 PM
[2016-09-03 14:15] LABS: INR 1.62 ratio
--- NOTE | 2016-09-03 14:21 | NUR ---
Evaluation completed. Please go to "Notes" then click on "Assessments and Notes" (bottom left corner of screen). Then select appropriate discipline tab on top of screen.
--- NOTE | 2016-09-03 15:45 | CONS ---
[address] [address] CARDIOLOGY INPATIENT CONSULTATION REPORT PATIENT: VALENTIN POSADAS : 1935 MR#: [id number] ADMIT: 09/02/2016 JOB ID: [id number] DATE OF SERVICE: 09/03/2016 CARDIOLOGY CONSULTATION: HISTORY OF PRESENT ILLNESS: This is a very pleasant 80-year-old gentleman with Parkinson disease, dementia, status post bioprosthetic aortic valve replacement for aortic regurgitation, tricuspid annuloplasty, repaired PFO, atrial appendage ligation, all of this was done on June 19, 2015. He had preserved cardiac function per echo from August 19, 2015 with LVEF 55%-60%. He has chronic atrial fibrillation, tachycardia-bradycardia syndrome and status post dual-chamber pacemaker implantation, and he also has hypothyroidism. Cardiology was asked to consult the patient for slightly elevated troponin. This patient was admitted to [facility] on September 02, 2016 with increased generalized weakness. When I spoke to the patient, the patient stated that his was concerned that last several days he was feeling more tired and weak than usual, and when he was sitting in a chair, he was always leaning to the right and that was very worrisome for his and she brought him to the hospital. Otherwise the patient tells me that generally he has been doing as usual, physically active, exercising on a stationary bike regularly every day and he tolerates physical activity very well without any chest discomfort or chest pressure or dyspnea on exertion. Denies having any palpitations, dizziness or lightheadedness. He does not have symptoms of nocturnal pulmonary congestion. On admission his blood pressure was 118/61. He was afebrile and he had normal saturation 96% at room air. On EKG it was showing that he had a ventricular paced rhythm with underlying atrial fibrillation. The workup so far did not show any infection including UA. He has normal kidney function and electrolytes. He had slightly elevated troponins with maximum on admission 0.096 which trended down and currently today is 0.039. REVIEW OF SYSTEMS: Twelve point of review of systems are negative except the ones mentioned in the HPI. HOME MEDICATIONS: 1. Atorvastatin 40 mg daily. 2. Digoxin 125 mcg, half tablet every day. 3. He is anticoagulated on warfarin. 4. He has also hypothyroidism and he is on levothyroxine 25 mcg tablet daily. 5. He is also on medications for his Parkinson disease. He is on carbidopa. PAST MEDICAL HISTORY: 1. Chronic atrial fibrillation. 2. Valvular heart disease. 3. Parkinson disease. 4. Obstructive sleep apnea on CPAP. 5. Hypothyroidism. 6. Restless legs syndrome. 7. Gastroesophageal reflux disease. 8. Hyperlipidemia. 9. History of depression and anxiety. 10. Hypertension. 11. TIA in 2011. 12. History of dyslipidemia. SURGICAL HISTORY: 1. Status post bioprosthetic aortic valve replacement for aortic regurgitation. 2. Tricuspid annuloplasty. 3. PFO repair. 4. Atrial appendage ligation which was done on June 19, 2015. 5. Ankle surgery. 6. Appendectomy. 7. Tonsillectomy. 8. Pacemaker. PHYSICAL EXAMINATION: Vital signs from today: Temperature 36.4 Celsius, pulse 71 beats per minute. Respiratory rate 18 per minute. Blood pressure 117/69 mmHg. Pulse oximetry 98% on room air. General: No acute distress. Well-developed, well-nourished, cooperative, comfortably lying in the bed.HEENT: Mucous membranes moist, eyes anicteric. Neck: Supple, no thyromegaly. Cardiovascular: Regular rate and rhythm, no murmur appreciated. Pulmonary: Normal breathing sounds bilaterally, no crackles, no wheezing. Abdomen: Nontender with palpation. Extremities: No lower extremity edema. Skin: No rash. Neurological: Alert and oriented x3, some memory issues. No gross abnormalities. LABORATORIES: His troponin on admission on September 02, 2016 0.096. It trended down today to 0.039. Triglycerides 64, cholesterol 154, LDL 90, HDL 51. Sodium 143, potassium 3.7, chloride 106, carbon dioxide 24, BUN 25, creatinine 0.68, glucose 90, calcium 9.4, magnesium 2. Total bilirubin 0.5. AST 56, ALT 10, alkaline phosphatase 96. Hemoglobin A1c 5.1. IMAGING: Chest x-ray from September 02, 2016 showed cardiomegaly without acute cardiopulmonary disease. CT brain without contrast from September 02, 2016 shows no acute intracranial abnormality. It also showed cerebral volume loss and chronic microvascular ischemic changes. Echo from September 03, 2016 showed the left ventricular wall thickness is mildly increased. His ejection fraction is estimated to be 45%-50%, which is actually decreased comparing to his echo from August 19, 2015 when his ejection fraction was 55%-60%. There is a bioprosthetic aortic valve. The prosthetic aortic valve is well seated. There is mild mitral regurgitation. There is mild tricuspid regurgitation. The right ventricular systolic pressure is estimated at 25 mmHg and atrial pressure is 3 mm Hg. Like I said, that compared to the prior examination, left ventricular fraction function is slightly decreased. Septal motion is consistent with postoperative state. Inferior apical hypokinesis, distal septal hypokinesis is noted. EKG from September 02, 2016 on admission showed ventricular paced rhythm with heart rate 70, underlying atrial fibrillation. Telemetry showed ventricular paced rhythm in 70s with underlying atrial fibrillation. His heart rate today was going up to 120 beats per minute with occasional PVCs. ASSESSMENT AND PLAN: This is a very pleasant 72-year-old gentleman who was admitted to [facility] on September 02, 2016. He has Parkinson disease, status post bioprosthetic aortic valve replacement for aortic regurgitation, tricuspid annuloplasty, PFO repair, atrial appendage ligation, all of this done on June 19, 2015, chronic atrial fibrillation anticoagulated on warfarin, tachycardia-bradycardia syndrome with dual-chamber pacemaker in place, hypothyroidism. He was admitted with generalized weakness that he has been experiencing it recently and found to have mildly elevated troponins and echo today showed decreased left ventricular systolic function with ejection fraction 45%-50% which is slightly decreased comparing that what he had one year ago when he had 55%- 60%. # Cardiomyopathy - The patient is clinically asymptomatic from cardiac standpoint, does not have angina. He is euvolemic on examination, does not have symptoms of congestive heart failure. On admission he had slightly elevated troponins which trended down, he had no ischemic changes on EKG. I discussed the case with erp specialist Dr. Melendez who recommended that the patients newly diagnosed cardiomyopathy and slightly elevated and trending down trops could be secondary to myocarditis. It should be noted that the patient had a diagnostic cardiac catheterization done on May 13, 2015 and no significant epicardial coronary artery disease was identified at the time. He had tubular stenosis in LAD in mid segment of about 30%.. Also it was noted that the area might also had mild myocardial bridging. Would recommend to proceed with lexiscan stress test to reassess progression of LAD CAD. At this point, would recommend to continue current medications without change. I would not recommend increasing the dose of his metoprolol taking in mind the patient's advanced Parkinson's disease with generally autonomic dysfunction. The case was discussed with Director Of Student Services Dr. Melendez who agreed with Assessment and Plan. DIONTED
--- NOTE | 2016-09-03 15:51 | PCM.PNMED ---
Subjective Date of Service Sep 03, 2016 Subjective Lior Hurtado is a 81 year old man with past medical history significant for open heart surgery with repair of the tricuspid valve and a patent foramen ovale, atrial fibrillation on chronic warfarin therapy, and Parkinson disease who presents today to the [facility] ED due to two days of confusion and generalized weakness. Overnight: No acute events. Today: The patient states that he is feeling fine and he is only somewhat more weak than usual. He denies any chest pain, shortness of breath or worsening confusion. The remainder of ROS is negative except as noted above. Exam Vital Signs Vital Sign - Last Date Time Temp Pulse Resp B/P Pulse Ox O2 Delivery O2 Flow Rate FiO2 09/03/16 11:56 36.4 71 18 117/69 98 Room Air Intake and Output 09/02/16 09/02/16 09/03/16 Cumulative From/Thru 15:00 23:00 07:00 09/02/16 14:48 - 09/03/16 05:20 Intake Total 0 ml 0 ml Output Total 400 ml 400 ml Balance -400 ml -400 ml Intake Oral 0 ml 0 ml Output Urine Total 400 ml 400 ml # Bowel Movements 0 0 Exam General: No acute distress, well-developed, well-nourished, appropriately interactive HEENT: Normocephalic, atraumatic. External ears without defect. Pupils equal, round, and reactive to light and accommodation. Anicteric sclerae, moist conjunctivae, and no lid lag. Oropharynx free of erythema and cobble stoning with moist mucosa. 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 Neck: Supple with full range of motion. No jugular venous distension. No bruits. No lymphadenopathy or thyromegaly. Cardiovascular: Regular rate and rhythm with soft diastolic murmur Pulmonary: Clear to auscultation bilaterally with no crackles, wheezes, or rhonchi. Normal respiratory effort with no use of accessory muscles. Abdomen: Bowel tones present. Soft, nontender, nondistended. No hepatosplenomegaly or masses appreciated. Extremities: No clubbing, cyanosis, edema, or lymphadenopathy appreciated. Skin: Normal temperature, turgor, and texture; no rash, ulcers, or subcutaneous nodules appreciated. Neurological: Cranial nerves grossly intact. Normal muscle strength, tone, and bulk. No known gait impairment. Psychiatric: Normal mood and affect. Alert and oriented to person, place, and time. IVs and Medications Medications Reviewed: Medications were reviewed in detail Lab and Diagnostics Result Diagram: 09/02/16 1500 09/02/16 1500 X-Rays, CTs and MRIs X-RAY CHEST ONE VIEW, PORTABLE IMPRESSION: Cardiomegaly, without acute cardiopulmonary disease. Dictated by: Abdiel Diallo M.D. on 09/02/2016 at 15:15 12-lead ECG V-paced, normal axis, unable to view ST changes Assessment & Plan Lior Hurtado is a 81 year old man with past medical history significant for open heart surgery with repair of the tricuspid valve and a patent foramen ovale, atrial fibrillation on chronic warfarin therapy, and Parkinson disease who presents today to the [facility] ED due to two days of confusion and generalized weakness. Possible CVA in patient with A. fib with subtherapeutic INR -DDx progression of Parkinson disease -CT of head without contrast negative. -CT angio of head and neck read pending -Patient has a pacemaker and is unable to have an MRI -ECHO with bubble study showed slightly reduced EF as compared to one year prior -Patient not on ASA, will start -Continue home statin -Telemetry -Fall precaution -ST, PT cleared patient. OT pending. Status post open heart surgery with valvular replacement and patent foramen ovale repair: -Possible contribution to CVA Elevated troponin, likely due to strain -Cardiology consulted, appreciate input. -Due to patient's reduction in EF, cardiology recommends stress test. Atrial fibrillation, present on admission -Subtherapeutic INR. Continue warfarin. -Continue home medications: Metoprolol tartrate -Patient on telemetry Parkinson's disease, present on admission: -Continue levodopa-carbidopa, donepezil, and pramipexole. Hyperlipidemia, present on admission: -Continue Atorvastatin. Depression anxiety, present on admission: -Continue Citalopram. Hypothyroidism, present on admission: -Continue Levothyroxine. Gastroesophageal reflux disease, present on admission: -Continue Pantoprazole. CODE STATUS: DNR/DNI Disposition: Anticipate patient can be discharged tomorrow, depending on the results of his stress test. VTE Prophylaxis: Theraputic Anticoag with Warfarin Resuscitation Status: DNR/DNI:Do Not Resuscitate/Intubate Attending Statement Patient was seen and examined with housestaff. Agree with all attached documentation. Yamel Jordan DO Sep 03, 2016 14:48 Ruben Nam MD Sep 04, 2016 12:44
--- NOTE | 2016-09-03 16:34 | DRSVH ---
PROCEDURE: CT ANGIO HEAD AND NECK (P) INDICATIONS: R/O Carotid Disease TECHNIQUE: Pre-contrast 4.5 mm thick sections acquired from the foramen magnum to the vertex. After the adminis tration of intravenous contrast, 1 mm thick sections acquired from the aortic arch through the [place]. Post-contrast 4.5 mm thick sections then re-acquired from the foramen magnum to the vert ex. 3-dimensional vevaiwm-iyegzuejh-xlcxbwnxhv (MIP) and/or volume rendering reformats were acquired of the central intracranial vasculature and neck separately. For radiation dose reduction, the foll owing was used: automated exposure control, adjustment of mA and/or kV according to patient size. COMPARISON: [facility], CT, CT BRAIN WO CON, 07/03/2016, 13:28. [facility], CT, BRAIN W/O CONTRAST, 05/04/2011, 8:34. [facility], CT, BRAIN W/O CONTRAST, 09/13/2011, 11:02. [facility], CT, CT BRAIN WO CON, 09/02/2016, 20:39. FINDINGS: Image quality: Excellent. BRAIN: CSF spaces: Ventricles are normal in size and shape. Basal cisterns are patent. No extra-axial flu id collections. Brain: No midline shift. No intracranial bleeds or masses. [place]-white matter interface appears int act. Moderate periventricular and subcortical white matter chronic microvascular ischemic changes are noted. Small punctate calcification noted in the right frontal lobe which is stable compared to prio r examinations and likely represents sequela of prior granulomatous disease. Skull and face: Calvarium and facial bones appear intact, without suspicious lesions. Orbits appear normal. Sinuses: Sinuses and mastoids are clear. HEAD CT ANGIOGRAPHY: Anterior circulation: Intracranial internal carotid arteries are normal in size and flow. Atheroscle rotic calcifications noted in the supraclinoid segments of the internal carotid arteries bilaterally which are causing visible stenosis. The flow within the paired anterior cerebral arteries is normal a nd symmetric. The flow within the middle cerebral arteries is normal and symmetric. The anterior co mmunicating artery is seen. No aneurysms are seen. Posterior circulation: Visualized portions of the vertebral arteries demonstrate normal caliber, and join to form a normal appearing basilar artery. Flow within the posterior cerebral arteries is norm al and symmetric. 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 No aneurysms are seen. NECK CT ANGIOGRAPHY: Carotid system: The great vessels demonstrate a conventional anatomy as they arise from the aortic a rch. The origins of the common carotid arteries appear patent. Atherosclerotic calcifications noted in the origin of the left subclavian artery which causes mild, approximately 20% stenosis of the vess el. The common carotid arteries demonstrate normal caliber and courses. Atherosclerotic calcification s in the origins of the internal carotid arteries bilaterally which causes less than 50% stenosis. Posterior circulation: The origins of the vertebral arteries both appear widely patent. The more mosley perior extracranial portions of both vertebral arteries also demonstrate normal courses and calibers. They join to form a normal appearing basilar artery. Soft tissues: Visualized neck soft tissues demonstrate no suspicious abnormalities. Postsurgical luiza nges compatible prior CABG procedure note in the upper chest . Dual-lead left chest wall cardiac pace r is noted. Bones: No suspicious bony lesions. Spine degenerative disc disease and facet arthropathy. Visualized cervical spine appears normally aligned. Median sternotomy wires noted in the upper chest. IMPRESSION: 1. No vascular occlusion or hemodynamically significant vascular stenosis. 2. Less than 50% stenosis of the origins of the internal carotid arteries bilaterally. 3. Atherosclerotic calcifications in the supraclinoid segments of the intracranial internal carotid a rteries bilaterally which do not cause measurable stenosis. 4. The vertebral arteries appear fully patent. 5. No acute intracranial disease process. Dictated by: Sydni Torres MD, PhD on 09/03/2016 at 16:21 Approved by: Sydni Torres MD, PhD on 09/03/2016 at 16:32
[2016-09-03 16:49] VITALS: BP 104/72; PULSE 71; RESP 19; O2SAT 97
--- NOTE | 2016-09-03 19:16 | NUR ---
Uneventful shift No reports of chest pain/pressure/discomfort. Tele V paced 60s-70s. Bilateral LE non pitting edema. No reports of SOB/dizziness, SPO2 mid 90s on RA, denies cough, patient has KOTA, home CPAP at bedside. No reports of n/v/d/c or abdominal pain. Episodes of incontinence, uses urinal at times. Alert and oriented x3, LOPEZ, reports full sensation. RN does not note arm drop, patient has even facial symmetry, face has non expressive, "parkinsons mask" type appearance.
[2016-09-03] MEDS ORDERED: Carbidopa-Levodopa 50-200 mg ER12 Tablet PO SCH (21:00)
[2016-09-03 23:25] VITALS: BP 102/63; PULSE 69; RESP 16; O2SAT 96
[2016-09-04 03:24] VITALS: BP 115/71; PULSE 72; RESP 16; O2SAT 98
--- NOTE | 2016-09-04 06:18 | NUR ---
Incontinence Pt incontinent of urine 90% of the time. Full soaked brief, pt placed in blue briefs instead of the white pull ups he was using during the day which have to be put on in pairs d/t large amount of volume. Pt able to assist with urinal somewhat.
[2016-09-04 07:28] LABS: BASOPHILS % (AUTO) 0.2 % (0-3); EOSINOPHILS % (AUTO) 2.1 % (0-5); MONOCYTES % (AUTO) 6.7 % (4-12); Mean Corpuscular Hemoglobin 31.6 pg (27.0-35.0); Mean Corpuscular Volume 93.3 fL (81-100); NEUTROPHILS % (AUTO) 66.3 % (40-74); Platelet Count 158 bil/L (150-400)
[2016-09-04 07:41] VITALS: BP 104/64; PULSE 70; RESP 19; O2SAT 95
[2016-09-04 11:17] VITALS: BP 107/66; PULSE 70; RESP 18; O2SAT 96
--- NOTE | 2016-09-04 14:28 | NUR ---
Not available when attempted evaluation this afternoon. Will try again as staffing allows. Samir Mckee, OTR/L
--- NOTE | 2016-09-04 14:34 | NUR ---
Social Work: Discharge D: Pt discussed in am rounds. Pt is medically stable for discharge home with his spouse. Per MD, pt to require no home needs. LURE MAKER met with pt at bedside to confirm discharge plan and assess for unmet needs. Pt states that he has no concerns about discharge home and that his will be providing transport. A: Pt who lives at home with his and uses a FWW. P: Pt to discharge home via POV and no further sw needs. MICHAEL Castillo
--- NOTE | 2016-09-04 14:47 | NUR ---
Cardiac stress test Patient denied having pain or discomfort this morning. Patient had a small meal at 0630 this morning according to flotation tank operator RN report. Nuclear [facility] staff was made aware. Patient to be NPO for 4h prior to [facility] cardiac stress test and remained NPO after 0630 this morning. Patient was taken by Nuclear Med staff for procedure/test after 1200 today in stable condition.
--- NOTE | 2016-09-04 15:43 | DRSVH ---
PROCEDURE: 1 DAY PHARMACOLOGICAL STRESS TEST Rest and pharmacological stress myocardial perfusion SPECT with gated imaging and ejection fraction RADIOPHARMACEUTICAL: 9.1 mCi Tc-99m tetrafosmin IV at rest and 26.0 mCi Tc-99m tetrafosmin IV at pea k effect of pharmacological stress. A jgx-lck-jjmsevrv was performed. INDICATIONS: Chest pain. TECHNIQUE: Radiopharmaceutical was injected at peak stress test, and also at rest. SPECT images wer e obtained. SPECT myocardial perfusion images were displayed in short axis, horizontal long axis, an d vertical long axis views. Gated images were reviewed using [employer] software. COMPARISON: None. CARDIAC STRESS: A pharmacologic stress test was performed under the supervision of an attending staff, using an infus ion of LexiScan (0.4 mg/5 mL). Hemodynamic data: There is hypotensive response to pharmacologic stress. Symptoms: The patient denied anginal chest pain. Aminophylline: 100 mg/4 mL administered intravenously. EKG: Rest EKG paced. Stress EKG non-diagnostic paced. FINDINGS: Raw data: There is good myocardial uptake of radiotracer. No significant motion artifacts. Left ventricle function: Gated images demonstrate normal left ventricular wall thickening. Paradoxi minh septal motion is noted likely related to postoperative change. Hypokinesis is noted in the infero apical wall. No subjective evidence of transient ischemic dilation. Left ventricle resting end diast olic volume is 94 mL. Left ventricle stress ejection fraction is 57%; normal range is above 45%. Myocardial perfusion: There is a small, fixed perfusion defect in the lateral wall. There is a small , mildly intense reversible perfusion defect in the lateral wall adjacent to the fixed perfusion defe ct. There is otherwise normal distribution of radiotracer in the left ventricular myocardium during t he stress and rest phases of the study. IMPRESSION: 1. Abnormal study demonstrating a small lateral wall infarct with small area of mild brandon-infarct isc hemia. 2. Left ventricular inferoapical wall hypokinesis. Septal wall paradoxical motion is noted likely rel ated to postoperative change. 3. Normal stress LVEF of 57%. 4. Hypotensive response to pharmacologic stress. PQRS ATTESTATIONS: Measure 322 - Is this imaging test primarily performed on a low-risk surgery patient for preoperative evaluation within 30 days preceding their low-risk non-cardiac surgery? Low-risk surgery is defined as cardiac or myocardial infarction less than 1%, including (but not limited to) endoscopic pr ocedures, superficial procedures, cataract surgery, and excisional breast surgery: Answer: No Measure 323 - Is this imaging test performed primarily for the monitoring of an asymptomatic patient who had percutaneous coronary intervention on the visit date or within 2 years of the visit date? An swer: No Measure 324 - Is this imaging test performed primarily for the initial detection and risk assessment on an asymptomatic, low coronary heart disease patient? Low CHD risk definition = clinicians should consider the maximum number of available patient factors used to estimate risk based on [place] (A TP III criteria), typically age, gender, diabetes, smoking status, and use of blood pressure medicati on, and integrate age appropriate estimates for missing elements, such as LDL or standard blood press ure. Answer: No Dictated by: Sydni Torres MD, PhD on 09/04/2016 at 15:20 Approved by: Sydni Torres MD, PhD on 09/04/2016 at 15:40
--- NOTE | 2016-09-04 16:11 | PCM.DIMED ---
Yamel Jordan DO 09/04/16 1611: Discharge Instructions Date of Service Sep 04, 2016 Dates of Hospitalization Sep 02, 2016 at 17:01 Discharge Diagnosis Discharge Diagnosis Stroke ruled out. Status post open heart surgery with valvular replacement and patent foramen ovale repair Elevated troponin, likely due to strain Atrial fibrillation, present on admission Parkinson's disease, present on admission Hyperlipidemia, present on admission Depression anxiety, present on admission Hypothyroidism, present on admission Gastroesophageal reflux disease, present on admission Medication Instructions Additional med instructions No changes were made to your medications. Diet Discharge Diet: No restrictions Activity Discharge Activity: No restrictions Call your provider Call your provider for: Weakness (unilateral) Patient Instructions Patient Instructions You were evaluated for a stroke. We did not find any evidence of a stroke. You were evaluated for heart problem. We found a mild reduction in your ejection fraction, which is your heart's ability to squeeze and pump out blood. This should not cause problems. We did not find any major problems with your heart. You did not have a heart attack. Please follow up with your regular doctor in about 1 week. Follow-up Provider: Anitha Snyder MD Follow-up with PCP in: 1 week Ruben Nam MD 09/07/16 0742: Discharge Instructions Attending's Statement Patient seen and examined with house staff. Agree with all attached documentation. [email or web address] DO Sep 04, 2016 16:11 Ruben Nam MD Sep 07, 2016 07:42
[2016-09-04 16:12] VITALS: BP 105/59; PULSE 60; RESP 20; O2SAT 97
--- NOTE | 2016-09-04 17:24 | PCM.DC.MED ---
Discharge Summary Date of Service Sep 04, 2016 Dates of Hospitalization Date of Hospital Admission Sep 02, 2016 at 17:01 Date of Discharge: Sep 04, 2016 Providers: Admitting Physician: Ruben Nam MD Primary Care Physician: Anitha Snyder MD Attending Physician: Ruben Nam MD Diagnosis at Time of Discharge Diagnosis at Time of Discharge Stroke ruled out. Status post open heart surgery with valvular replacement and patent foramen ovale repair Elevated troponin, likely due to strain Atrial fibrillation, present on admission Parkinson's disease, present on admission Hyperlipidemia, present on admission Depression anxiety, present on admission Hypothyroidism, present on admission Gastroesophageal reflux disease, present on admission Consultations Cardiology Procedures XRay, CTs & MRIs X-RAY CHEST ONE VIEW, PORTABLE IMPRESSION: Cardiomegaly, without acute cardiopulmonary disease. Dictated by: Abdeil Diallo M.D. on 09/02/2016 at 15:15 ECG 12 Lead V-paced, normal axis, unable to view ST changes Cardiac Echo Impression Interpretation Summary Yellow Team. Left ventricular wall thickness is mildly increased. The ejection fraction is estimated to be 45-50%. Septal motion is consistent with post-operative state. Inferoapical hypoknesis, distal septal hypokinesis. There is a bioprosthetic aortic valve. The prosthetic aortic valve is well-seated. There is mild mitral regurgitation. There is mild tricuspid regurgitation. The right ventricular systolic pressure is estimated at 25 mmHg assuming a right atrial pressure of 3 mm Hg. Compared to the prior exam, left ventricular function is slightly decreased. Brief History Lior Hurtado is a 81 year old man with past medical history significant for open heart surgery with repair of the tricuspid valve and a patent foramen ovale, atrial fibrillation on chronic warfarin therapy, and Parkinson disease who presents today to the [facility] ED due to two days of confusion and generalized weakness. The patient is a poor historian and is accompanied by his who gives much of the history. The patient's has noticed for the last few days that he has been weak with a somewhat abrupt change two days ago. She has also noticed that he leans more to the right in a chair and has had worsening of his shuffling gait. She noticed more pronounced confusion and slurring than usual. She denies any facial droop. The patient denies any chest pain, shortness of breath, diaphoresis, unilateral weakness, nausea, vomiting or abdominal or back pain. He does see a neurologist for his Parkinson and there have been no changes to his medications. His last visit was two months ago. He was seen yesterday at an Urgent Care where concern was expressed about a possible CVA and he was advised to come to the hospital for further evaluation. In the ED his vitals were stable. EKG was V-Paced and not revealing. CXR was negative. He has a mildly elevated troponin. Hospital Course Lior Hurtado is a 81 year old man with past medical history significant for open heart surgery with repair of the tricuspid valve and a patent foramen ovale, atrial fibrillation on chronic warfarin therapy, and Parkinson disease who presents today to the [facility] ED due to two days of confusion and generalized weakness. Weakness, stroke ruled out -DDx progression of Parkinson disease -CT of head without contrast negative. -CT angio of head and neck negative for significant disease -Patient has a pacemaker and is unable to have an MRI -ECHO with bubble study showed slightly reduced EF as compared to one year prior -Continue home statin -Telemetry -Fall precautions -ST, PT cleared patient Status post open heart surgery with valvular replacement and patent foramen ovale repair: Elevated troponin, likely due to strain -Cardiology consulted, appreciate input. -Due to patient's reduction in EF, cardiology recommended stress test. -Stress test showed a small area lateral wall infarct. However this was reviewed and discussed with cardiology and felt to be insignificant. Atrial fibrillation, present on admission -Subtherapeutic INR. Continued warfarin. -Continued home medications: Metoprolol tartrate -Patient on telemetry Parkinson's disease, present on admission: -Continued levodopa-carbidopa, donepezil, and pramipexole. Hyperlipidemia, present on admission: -Continued Atorvastatin. Depression anxiety, present on admission: -Continued Citalopram. Hypothyroidism, present on admission: -Continued Levothyroxine. Gastroesophageal reflux disease, present on admission: -Continued Pantoprazole. CODE STATUS: DNR/DNI Patient was deemed stable for discharge with stable vital signs, improvement of symptoms, and follow-up plan. Exam Vital Signs (Last) Date Time Temp Pulse Resp B/P Pulse Ox O2 Delivery O2 Flow Rate FiO2 09/04/16 16:12 CPAP/BIPAP 09/04/16 16:12 36.4 60 20 105/59 97 Exam General: No acute distress, well-developed, well-nourished, appropriately interactive HEENT: Normocephalic, atraumatic. External ears without defect. Pupils equal, round, and reactive to light and accommodation. Anicteric sclerae, moist conjunctivae, and no lid lag. Oropharynx free of erythema and cobble stoning with moist mucosa. 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 Neck: Supple with full range of motion. No jugular venous distension. No bruits. No lymphadenopathy or thyromegaly. Cardiovascular: Regular rate and rhythm with soft diastolic murmur Pulmonary: Clear to auscultation bilaterally with no crackles, wheezes, or rhonchi. Normal respiratory effort with no use of accessory muscles. Abdomen: Bowel tones present. Soft, nontender, nondistended. No hepatosplenomegaly or masses appreciated. Extremities: No clubbing, cyanosis, edema, or lymphadenopathy appreciated. Skin: Normal temperature, turgor, and texture; no rash, ulcers, or subcutaneous nodules appreciated. Neurological: Cranial nerves grossly intact. Normal muscle strength, tone, and bulk. No known gait impairment. Psychiatric: Normal mood and affect. Alert and oriented to person, place, and time. Test 09/02/16 15:00 09/02/16 17:35 09/03/16 08:20 09/03/16 13:56 Hemoglobin A1c 5.1% (4.8-5.6) Magnesium Level 2.0mg/dL (1.6-2.6) Total Bilirubin 0.5mg/dL (0.0-1.2) Aspartate Amino Transf (AST/SGOT) 56U/L (0-50) Alanine Aminotransferase (ALT/SGPT) 10U/L (0-44) Alkaline Phosphatase 96U/L (25-160) Total Protein 6.3g/dL (6.4-8.4) Albumin 4.1g/dL (3.4-5.0) Triglycerides Level 64mg/dL (0-149) Cholesterol Level 154mg/dL (100-199) LDL Cholesterol, Calculated 90.200mg/dL (0-99) VLDL Cholesterol 12.800mg/dL HDL Cholesterol 51mg/dL (>39) Cholesterol/HDL Ratio 3.02 (0.0-4.4) Hold Mac Top Tube Received (Received) Urine Color Yellow (YELLOW) Urine Appearance Clear (CLEAR,HAZY) Urine pH 5.0 (5.0-8.0) Urine Specific [place] 1.025 (1.003-1.035) Urine Protein Negativemg/dL (NEG,TRACE) Urine Glucose (UA) Negativemg/dL (NEGATIVE) Urine Ketones Tracemg/dL (NEGATIVE) Urine Occult Blood Negative (NEGATIVE) Urine Nitrite Negative (NEGATIVE) Urine Bilirubin Negative (NEGATIVE) Urine Urobilinogen Normalmg/dL (NORMAL) Urine Leukocyte Esterase Negative (NEGATIVE) Urine RBC 0-2/hpf (0-2) Urine WBC 0-5/hpf (0-5) Urine Epithelial Cells Occasional/hpf (NONE-MOD) Urine Crystals None seen (NONE SEEN) Urine Bacteria None/hpf (NONE-FEW) Urine Hyaline Casts None/lpf (NONE) Urine Granular Casts None seen (NONE SEEN) Urine Waxy Casts None seen (NONE SEEN) Urine Red Blood Cell Casts None seen (NONE SEEN) Urine White Blood Cell Casts None seen (NONE SEEN) Urine Mucus None seen (None Seen) Urine Trichomonas None seen (NONE SEEN) Urine Yeast None (NONE SEEN) Urinalysis Comment None Urine Culture Reflexed Not indicated Troponin T 0.039ug/L (0.0-0.011) Prothrombin Time 17.5sec (8.1-12.5) Prothromb Time International Ratio 1.62ratio Test 09/04/16 07:05 White Blood Count 4.3th/mm3 (3.8-10.1) Red Blood Count 4.21mil/mm3 (4.40-5.80) Hemoglobin 13.3g/dL (13.8-17.2) Hematocrit 39.3% (41.0-50.0) Mean Corpuscular Volume 93.3fL (81-100) Mean Corpuscular Hemoglobin 31.6pg (27.0-35.0) Mean Corpuscular Hemoglobin Concent 33.8% (32.0-37.0) Red Cell Distribution Width 12.5% (12.3-15.4) Platelet Count 158bil/L (150-400) Neutrophils (%) (Auto) 66.3% (40-74) Lymphocytes (%) (Auto) 24.5% (14-46) Monocytes (%) (Auto) 6.7% (4-12) Eosinophils (%) (Auto) 2.1% (0-5) Basophils (%) (Auto) 0.2% (0-3) Sodium Level 140mEq/L (134-144) Potassium Level 3.8mEq/L (3.5-5.2) Chloride Level 104mEq/L (97-108) Carbon Dioxide Level 28mmol/L (18-29) Blood Urea Nitrogen 15mg/dL (8-27) Creatinine 0.60mg/dL (0.76-1.27) Estimat Glomerular Filtration Rate 138mL/min (>59) Glucose Level 149mg/dL (60-99) Calcium Level 8.7mg/dL (8.5-10.1) Discharge Medications Discharge Medications Atorvastatin (Lipitor) 20 Mg Tablet 40 MG PO HS (Reported) Carbidopa/Levodopa 25-100 mg (Carbidopa/Levodopa 25-100 mg) 1 Each Tablet 1 TABLET PO BIDWM (Reported) 10AM, 1630PM Carbidopa/Levodopa 25-100 mg (Carbidopa/Levodopa 25-100 mg) 1 Each Tablet 1.5 TABLET PO BID (Reported) 06AM, 1400PM Carbidopa/Levodopa ER 50-200 mg (Carbidopa/Levodopa ER 50-200 mg) 1 Each Tablet 1 TABLET PO HS (Reported) Cholecalciferol (Vitamin D3) (Vitamin D3) 2,000 Unit Capsule 2,000 UNIT PO DAILY (Reported) Citalopram (Citalopram) 20 Mg Tablet 20 MG PO HS (Reported) Clonazepam (Clonazepam) 1 Mg Tablet 1 MG PO HS (Reported) Digoxin (Digoxin) 250 Mcg Tablet 125 MCG PO HS (Reported) Docusate Sodium (Docusate Sodium) 250 Mg Capsule 100 MG PO BID (Reported) Donepezil (Donepezil) 10 Mg Tablet 10 MG PO HS (Reported) Levothyroxine (Levothyroxine) 25 Mcg Tablet 25 MCG PO QAM (Reported) Metoprolol Tartrate (Metoprolol Tartrate) 25 Mg Tablet 12.5 MG PO BID (Reported ) Mineral Oil/Petrolatum,White (Refresh P.m. Ointment) 3.5 Gm Oint...g. 1 APPLIC BOTH_EYES HS (Reported) Multivitamin (Once Daily) 1 Each Tablet 1 EACH PO DAILY (Reported) Pramipexole Dihydrochloride (Mirapex) 0.5 Mg Tablet 0.5 MG PO QAM (Reported) Pramipexole Dihydrochloride (Mirapex) 0.5 Mg Tablet 1.5 MG PO HS (Reported) Sennosides (Senna) 8.6 Mg Tablet 17.2 MG PO HS (Reported) Trazodone (Trazodone) 50 Mg Tablet 25 MG PO HS (Reported) Warfarin Sodium (Warfarin Sodium) 2.5 Mg Tablet 2.5 MG PO QPM (Reported) take along with 2mg tab for a total dose of 4.5mg daily Warfarin Sodium (Warfarin Sodium) 2 Mg Tablet 2 MG PO QPM (Reported) take along with 2.5mg tab for a total dose of 4.5mg daily Additional med instructions No changes were made to your medications. Followup Plan Disposition: Home Discharge Diet: No restrictions Discharge Activity: No restrictions Patient Instructions You were evaluated for a stroke. We did not find any evidence of a stroke. You were evaluated for heart problem. We found a mild reduction in your ejection fraction, which is your heart's ability to squeeze and pump out blood. This should not cause problems. We did not find any major problems with your heart. You did not have a heart attack. Please follow up with your regular doctor in about 1 week. Follow-up Provider: Anitha Snyder MD Follow-up with PCP in: 1 week Time spent 60 minutes Attending Statement Patient was seen and examined with housestaff. Agree with all attached documentation. Yamel Jordan DO Sep 04, 2016 17:24 Ruben Nam MD Sep 07, 2016 07:48
--- NOTE | 2016-09-04 17:46 | NUR ---
Discharge Patient was discharged home this evening in stable condition within his limitations. Patient denied having any pain, chest pain, shortness of breath. Patient and his verbalized understanding of verbal and written discharge home instructions regarding home medications, follow up appointments, activity, how to make home environment safer to prevent falls and S/S when to call MD or 911. MD was able to explain to the patient and his the results of todays cardiac test. IV was removed intact prior to discharge. Patient continued to require one persona assist to a standing position and was able to ambulate with his home walker or front wheel walker with standby at discharge. Patient was accompanied by staff and was transported in a wheelchair to his 's car.
== END 2016-09-04 17:30 | disposition home or self-care (01) ==
LOC: SED 14:44 → PCC 17:01 → INTOOBSV 17:01
PROVIDERS: ADMIT Hospitalist; ATTEND Hospitalist
DX: R53.1 Weakness (principal); R41.0 Disorientation, unspecified; R79.89 Other specified abnormal findings of blood chemistry; I48.91 Unspecified atrial fibrillation; G20 Parkinson's disease; E78.5 Hyperlipidemia, unspecified; F41.8 Other specified anxiety disorders; E03.9 Hypothyroidism, unspecified; K21.9 Gastro-esophageal reflux disease without esophagitis; G47.33 Obstructive sleep apnea (adult) (pediatric); G25.81 Restless legs syndrome; I10 Essential (primary) hypertension; I38 Endocarditis, valve unspecified; Z86.73 Personal history of transient ischemic attack (TIA), and cerebral infarction without residual deficits; Z95.0 Presence of cardiac pacemaker; Z79.01 Long term (current) use of anticoagulants; Z66 Do not resuscitate
CPT/HCPCS: 36415; 70450; 70496; 70498; 71010; 78452; 80048; 80053; 80061; 81000; 83036; 83735; 84484; 85025; 85610; 92610; 93005; 93017; 97162; 99285; A9502; C8929; G0378; G8978; G8979; G8980; J0280; J1650; J2785; Q9967

== ENCOUNTER 2016-10-20 18:11 | Emergency (ER) | payer MEDICARE, OTHER ==
[~2016-10-20] VITALS: Ht 167.6 cm; Wt 72.7 kg
[~2016-10-20 18:11] MED LIST changes: +DIGO250T72 PO; -LEVO500T16 PO; -MINE3.5O28 BOTH_EYES; -NIAC100045 PO; -PANT40TA3 PO; +PETR3.5O BOTH_EYES; -POLY1DRO BOTH_EYES; -PRAM0.252 PO; -PRAM0.256 PO; +PRAM0.5T3 PO; +TRAZ-115 PO
[2016-10-20 18:39] VITALS: BP 120/76; PULSE 70; RESP 16; O2SAT 97
--- NOTE | 2016-10-20 19:08 | ED.REPORT ---
HPI-General Illness Date of Service Oct 20, 2016 ED Provider: Al Cruz DO Pt is a 81 y/o male anticoagulated on Warfarin w/ a hx of Parkinson's disease, dementia, a-fib, pacemaker insertion, CHF, TIA, presenting to the ED with his due to intermittent worsening of baseline confusion onset 1 month ago. The patient has been more confused and has become irritable over the past 1 month. This morning at a physical therapy appointment he was unable to normally follow directions and has been experiencing decreased level of responsiveness. He lives at home with his and is able to fully care for himself. Pt denies CP , SOB, abdominal pain, dysuria, urinary frequency, cough, generalized weakness. His says that in his current state she could help care for him. Nursing Notes Stated Complaint: CONFUSION, IRITABILE, DIFFICULTY WITH DIRECTIONS Chief Complaint: Neuro Symptoms/ Deficits Nursing Notes Reviewed: Yes Allergies: Coded Allergies: TAPE (Verified Allergy, Mild, 09/02/16) Scheduled Atorvastatin (Lipitor) 20 Mg Tablet 40 MG PO HS Carbidopa/Levodopa 25-100 mg (Carbidopa/Levodopa 25-100 mg) 1 Each Tablet 1 TABLET PO BIDWM 10AM, 1630PM Carbidopa/Levodopa 25-100 mg (Carbidopa/Levodopa 25-100 mg) 1 Each Tablet 1.5 TABLET PO BID 06AM, 1400PM Carbidopa/Levodopa ER 50-200 mg (Carbidopa/Levodopa ER 50-200 mg) 1 Each Tablet 1 TABLET PO HS Cholecalciferol (Vitamin D3) (Vitamin D3) 2,000 Unit Capsule 2,000 UNIT PO DAILY Citalopram (Citalopram) 20 Mg Tablet 20 MG PO HS Clonazepam (Clonazepam) 1 Mg Tablet 1 MG PO HS Digoxin (Digoxin) 250 Mcg Tablet 125 MCG PO HS Docusate Sodium (Docusate Sodium) 250 Mg Capsule 100 MG PO BID Donepezil (Donepezil) 10 Mg Tablet 10 MG PO HS Levothyroxine (Levothyroxine) 25 Mcg Tablet 25 MCG PO QAM Metoprolol Tartrate (Metoprolol Tartrate) 25 Mg Tablet 12.5 MG PO BID Mineral Oil/Petrolatum,White (Refresh P.m. Ointment) 3.5 Gm Oint...g. 1 APPLIC BOTH_EYES HS Multivitamin (Once Daily) 1 Each Tablet 1 EACH PO DAILY Pramipexole Dihydrochloride (Mirapex) 0.5 Mg Tablet 0.5 MG PO QAM Pramipexole Dihydrochloride (Mirapex) 0.5 Mg Tablet 1.5 MG PO HS Sennosides (Senna) 8.6 Mg Tablet 17.2 MG PO HS Trazodone (Trazodone) 50 Mg Tablet 25 MG PO HS Warfarin Sodium (Warfarin Sodium) 2.5 Mg Tablet 2.5 MG PO QPM take along with 2mg tab for a total dose of 4.5mg daily Warfarin Sodium (Warfarin Sodium) 2 Mg Tablet 2 MG PO QPM take along with 2.5mg tab for a total dose of 4.5mg daily General Time Seen by MD: 19:06 Chief Complaint Other (confusion) Hx Obtained From: Patient Arrived By: Walk-in Sudden in Onset?: No Onset Occurred: More than a week ago... 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 Stays active by riding bicycle. Alcohol Use: "Social" Drug Use: Denies drug use Occupation Retired Ambulatory Status Walker Review of Systems Full Review of Systems Constitutional: Denies: Chills, Fever, Weakness - generalized Respiratory: Denies: Non-productive cough, Shortness of breath Cardiovascular: Denies: Chest pain GI: Denies: Abdominal pain Male: Denies Dysuria, Denies Urinary frequency Neurologic: Reports: Change LOC, Confusion Psychiatric: Reports: Agitation Complete sys rev & neg: except as marked. Physical Exam Vital Signs Vital Signs Date Time Temp Pulse Resp B/P Pulse Ox O2 Delivery O2 Flow Rate FiO2 10/20/16 22:44 70 16 97/60 97 Room Air 10/20/16 21:34 70 16 99/57 97 Room Air 10/20/16 20:33 70 16 120/60 97 Room Air 10/20/16 18:39 37 70 16 120/76 97 Room Air Initial VS: Reviewed, Vital signs normal ENT: Mucous membranes moist, Conjunctiva normal, No scleral icterus Neck: Supple, Full range of motion Respiratory: Breath sounds normal, Clear to auscultation, No respiratory distress Cardiovascular: Regular rate & rhythm, Heart sounds normal, Intact distal pulses Abdomen / GI: Soft, Non-tender Extremities: Vascular intact, Neuro intact Skin: Warm, Dry, No cyanosis General/Constitutional: Awake, Alert, No acute distress, Cooperative, Not toxic appearing Head / Eyes: Atraumatic, Normocephalic, PERRL, EOMI Neurologic: Oriented X3, Speech NL, No motor deficits Psychiatric: Affect NL, Mood NL Abnormal Thinking / Perception: Positive: Tangential thinking Interpretation & Diagnostics Lab Results Interpretation Result Diagram: 10/20/16190910/20/161909 Test 10/20/16 19:10 10/20/16 21:11 White Blood Count 5.0th/mm3 (3.8-10.1) Red Blood Count 4.18mil/mm3 (4.40-5.80) Hemoglobin 13.3g/dL (13.8-17.2) Hematocrit 38.9% (41.0-50.0) Mean Corpuscular Volume 93.1fL (81-100) Mean Corpuscular Hemoglobin 31.8pg (27.0-35.0) Mean Corpuscular Hemoglobin Concent 34.2% (32.0-37.0) Red Cell Distribution Width 12.2% (12.3-15.4) Platelet Count 129bil/L (150-400) Neutrophils (%) (Auto) 67.8% (40-74) Lymphocytes (%) (Auto) 22.8% (14-46) Monocytes (%) (Auto) 7.2% (4-12) Eosinophils (%) (Auto) 1.6% (0-5) Basophils (%) (Auto) 0.4% (0-3) Hold Purple Top Tube Received (Received) Prothrombin Time 19.3sec (8.1-12.5) Prothromb Time International Ratio 1.78ratio Hold Blue Top Tube Received (Received) Sodium Level 135mEq/L (134-144) Potassium Level 4.4mEq/L (3.5-5.2) Chloride Level 99mEq/L (97-108) Carbon Dioxide Level 24mmol/L (18-29) Blood Urea Nitrogen 17mg/dL (8-27) Creatinine 0.70mg/dL (0.76-1.27) Estimat Glomerular Filtration Rate 116mL/min (>59) Glucose Level 166mg/dL (60-99) Lactic Acid Level 1.3mmol/L (0.4-2.0) Calcium Level 9.1mg/dL (8.5-10.1) Total Bilirubin 0.3mg/dL (0.0-1.2) Aspartate Amino Transf (AST/SGOT) 29U/L (0-50) Alanine Aminotransferase (ALT/SGPT) 11U/L (0-44) Alkaline Phosphatase 83U/L (25-160) Total Protein 6.1g/dL (6.4-8.4) Albumin 4.0g/dL (3.4-5.0) Procalcitonin 0.02ng/mL (0.00-0.08) Hold [place] Top Tube Received (Received) Hold Mac Top Tube Received (Received) Urine Color Straw (YELLOW) Urine Appearance Clear (CLEAR,HAZY) Urine pH 5.5 (5.0-8.0) Urine Specific [place] <1.005 (1.003-1.035) Urine Protein Negativemg/dL (NEG,TRACE) Urine Glucose (UA) Negativemg/dL (NEGATIVE) Urine Ketones Negativemg/dL (NEGATIVE) Urine Occult Blood Negative (NEGATIVE) Urine Nitrite Negative (NEGATIVE) Urine Bilirubin Negative (NEGATIVE) Urine Urobilinogen Normalmg/dL (NORMAL) Urine Leukocyte Esterase Negative (NEGATIVE) Urine RBC 0-2/hpf (0-2) Urine WBC 0-5/hpf (0-5) Urine Epithelial Cells Occasional/hpf (NONE-MOD) Urine Crystals None seen (NONE SEEN) Urine Bacteria None/hpf (NONE-FEW) Urine Hyaline Casts None/lpf (NONE) Urine Granular Casts None seen (NONE SEEN) Urine Waxy Casts None seen (NONE SEEN) Urine Red Blood Cell Casts None seen (NONE SEEN) Urine White Blood Cell Casts None seen (NONE SEEN) Urine Mucus None seen (None Seen) Urine Trichomonas None seen (NONE SEEN) Urine Yeast None (NONE SEEN) Urinalysis Comment None Urine Culture Reflexed Not indicated ECG Interpretation ECG Interpretation: Ventricularly paced rhythm rate 71 Time: 20:21 Interpreted by: ED physician Normal ECG Interpretation: No acute ischemic changes, No change from prior ECGs X-Ray Chest Interpretation Chest Xray Interpretation: IMPRESSION: No acute cardiopulmonary disease. Dictated by: Sid Mcdonald M.D. on 10/20/2016 at 20:06 Approved by: Sid Mcdonald M.D. on 10/20/2016 at 20:08 View: Portable, 1 view Interpretation / Wet Read by: Interpret - Radiologist CT Head Interpretation IMPRESSION: 1. No acute intracranial abnormalities. 2. Cerebral volume loss and chronic microvascular ischemic changes. Dictated by: Sid Mcdonald M.D. on 10/20/2016 at 20:04 Approved by: Sid Mcdonald M.D. on 10/20/2016 at 20:06 Study: Head CT no contrast Interpretation / Wet Read by: Interpret - Radiologist Re-Eval/Medical Decision Med Decision/Clinical Course Discussed with patient and his this is likely a progression of his Parkinson's dementia, as there is no other explanation seen on imaging or lab studies here. No evidence of infection evidenced by negative pro calcitonin, negative UA, and normal chest x-ray. In my evaluation today he was alert and oriented 3 and was able to reason normally. He was able to tell me his entire history. He did have some tangential thought, discussing some things with me that were not pertinent to her conversation. Head CT does not show any acute abnormalities. I discussed with the patient and his that this transient confusion or delirium is related to his Parkinson's and dementia. His states that she is able to care for him in his current state, and I advised that they should follow up with her primary care provider later this week. The patient and his were in agreement with the plan Time of Eval: 22:06 Re-Evaluation/Progress Note: Pt rechecked. Informed pt of plan for discharge. Pt understands and agrees with plan for discharge. F/U instructions and RTER warnings given. All questions addressed. Counseled Regarding: Diagnosis, Lab results, Need for follow-up, When/why to return to ED Discharge & Departure Primary Impression: Delirium Additional Impression: Parkinson's disease Disposition: Home Discharge Condition All VS Reviewed: Yes Condition: Stable Patient Instructions: Dementia (ED) Additional Instructions: The cause of your symptoms is unclear, but does not appear to be anything dangerous based off of our lab work and scans done here. This may be/likely is a progression of Parkinson's. Labs, urinalysis, and CT of the brain today were all reassuring. Follow-up with your primary care doctor in 1-2 weeks for a recheck. Return to the emergency department if you experience fever, worsening confusion , severe headache or neck pain, or for other concerning symptoms. Referrals: Anitha Snyder MD (PCP) Scribe Attestation Portions of this note were transcribed by Alfa Alfaro. I, Dr. Cruz personally performed the history, physical exam and medical decision-making; I reviewed and confirmed the accuracy of the information in the transcribed note. copies to: Anitha Snyder MD, Gary R DO Oct 20, 2016 19:08 ALFA ALFARO Oct 20, 2016 19:14
[2016-10-20 19:34] LABS: BASOPHILS % (AUTO) 0.4 % (0-3); EOSINOPHILS % (AUTO) 1.6 % (0-5); MONOCYTES % (AUTO) 7.2 % (4-12); Mean Corpuscular Hemoglobin 31.8 pg (27.0-35.0); Mean Corpuscular Volume 93.1 fL (81-100); NEUTROPHILS % (AUTO) 67.8 % (40-74); Platelet Count 129 bil/L (150-400)
[2016-10-20 19:40] LABS: INR 1.78 ratio
--- NOTE | 2016-10-20 20:07 | DRSVH ---
PROCEDURE: CT BRAIN WITHOUT CONTRAST ([id number]) INDICATIONS: confusion, irritable TECHNIQUE: Noncontrast 4.5 mm thick angled axial sections acquired from the foramen magnum to the vertex, with c oronal reformats. COMPARISON: [facility], CT, CT BRAIN WO CON, 09/02/2016, 20:39. FINDINGS: Image quality: Excellent. CSF spaces: Basal cisterns are patent. No extra-axial fluid collections. The ventricles are symmet lizabeth in size and shape. Brain: No intracranial bleeds or masses. There is moderate cerebral volume loss for age, with resul tant ventricular and sulcal prominence. There are moderate periventricular and deep white matter chr onic small vessel ischemic changes. There is intracranial internal carotid artery atherosclerosis. Skull and face: Calvarium and visualized facial bones appear intact, without suspicious lesions. Sinuses: Visualized sinuses and mastoids are clear. IMPRESSION: 1. No acute intracranial abnormalities. 2. Cerebral volume loss and chronic microvascular ischemic changes. Dictated by: Sid Mcdonald M.D. on 10/20/2016 at 20:04 Approved by: Sid Mcdonald M.D. on 10/20/2016 at 20:06
--- NOTE | 2016-10-20 20:09 | DRSVH ---
PROCEDURE: X-RAY CHEST ONE VIEW, PORTABLE ([id number]) INDICATIONS: ALTERED MENTAL STATUS TECHNIQUE: One view of the chest was acquired. COMPARISON: [facility], CR, XR CHEST 1VW (PORTABLE), 09/02/2016, 14:54. FINDINGS: Surgical changes and devices: Sternotomy. 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 Cardiac pacer leads i n expected position. Lungs and pleura: No pleural effusions or pneumothorax. Lungs are clear. Mediastinum: Mediastinal contours appear normal. Heart size is mildly increased. Bones and chest wall: No suspicious bony lesions. Overlying soft tissues appear unremarkable. IMPRESSION: No acute cardiopulmonary disease. Dictated by: Sid Mcdonald M.D. on 10/20/2016 at 20:06 Approved by: Sid Mcdonald M.D. on 10/20/2016 at 20:08
[2016-10-20 20:33] VITALS: BP 120/60; PULSE 70; RESP 16; O2SAT 97
[2016-10-20 21:23] LABS: APPEARANCE,URINE CLEAR (CLEAR,HAZY); COLOR,URINE STRAW (YELLOW); OCCULT BLOOD,URINE NEGATIVE (NEGATIVE); PH,URINE 5.5 (5.0-8.0); UROBILINOGEN,URINE NORMAL (NORMAL)
[2016-10-20 21:34] VITALS: BP 99/57; PULSE 70; RESP 16; O2SAT 97
[2016-10-20 22:44] VITALS: BP 97/60; PULSE 70; RESP 16; O2SAT 97
== END 2016-10-20 22:45 | disposition home or self-care (01) ==
LOC: SED 18:11
DX: F05 Delirium due to known physiological condition (principal); G31.83 Neurocognitive disorder with Lewy bodies; G47.30 Sleep apnea, unspecified; I48.91 Unspecified atrial fibrillation; G25.81 Restless legs syndrome; I50.9 Heart failure, unspecified; Z86.73 Personal history of transient ischemic attack (TIA), and cerebral infarction without residual deficits; Z95.0 Presence of cardiac pacemaker; Z79.01 Long term (current) use of anticoagulants